=== PATIENT | female | born 1995 | race Caucasian/White ===

== ENCOUNTER 2019-10-14 07:25 | Emergency (ER) | payer OTHER ==
[~2019-10-14] VITALS: Ht 167.6 cm; Wt 104.3 kg
[2019-10-14] MEDS ORDERED: ZPAK PO (07:39)
[2019-10-14] MEDS ORDERED: MUCINEX D ER 11 EACH PO (07:39)
[2019-10-14 08:02] VITALS: BP 138/80
== END 2019-10-14 07:58 | disposition home or self-care (01) ==
LOC: ER 07:25
DX: H65.191 Other acute nonsuppurative otitis media, right ear (principal)

== ENCOUNTER 2019-11-08 19:18 | Emergency (ER) | payer OTHER ==
[~2019-11-08] VITALS: Ht 170.2 cm; Wt 104.3 kg
[~2019-11-08 19:18] MED LIST: MUCINEX D ER 11 EACH PO; ZPAK PO
[2019-11-08] MEDS ORDERED: IBUPROFEN 800800 M1 PO (19:26)
[2019-11-08 21:56] VITALS: BP 124/63
== END 2019-11-08 21:58 | disposition home or self-care (01) ==
LOC: ER 19:18
DX: J10.1 Influenza due to other identified influenza virus with other respiratory manifestations (principal)

== ENCOUNTER 2020-04-17 20:17 | Emergency (ER) | payer OTHER ==
[~2020-04-17] VITALS: Ht 167.6 cm; Wt 104.3 kg
[~2020-04-17 20:17] MED LIST changes: +IBUPROFEN 800800 M1 PO
[2020-04-17] MEDS ORDERED: XANAX 0.5 MG0.5 MG PO (20:28)
[2020-04-17 21:10] LABS: URINE BILIRUBIN NEGATIVE (Negative); URINE BLOOD 1+ (Negative); URINE CLARITY SL CLOUDY; URINE COLOR YELLOW; URINE GLUCOSE-RANDOM* NEGATIVE (Negative); URINE KETONES NEGATIVE (Negative); URINE LEUKOCYTES-REFLEX TRACE (Negative); URINE NITRITE-REFLEX NEGATIVE (Negative); URINE PROTEIN (DIPSTICK) NEGATIVE (Negative); URINE SPECIFIC GRAVITY >= 1.030 (1.005-1.035); URINE UROBILINOGEN 0.2 E.U./dl (0.2-1.0)
[2020-04-17 21:21] LABS: ABSOLUTE NEUTROPHILS 6.8 thou/uL (1.4-8.2); BASOPHILS 0.7 % (0.0-2.0); EOSINOPHILS 4.3 % (0.0-3.0); HEMATOCRIT 37.8 % (37.0-47.0); HEMOGLOBIN 12.9 gm/dL (12.0-15.0); LYMPHOCYTES 30.2 % (24.0-44.0); MCH 30.3 pg (26.0-34.0); MCHC 34.2 g/dL (28.0-37.0); MCV 88.8 fL (80.0-100.0); MONOCYTES 5.8 % (1.0-8.0); PLATELET COUNT 234 thou/uL (150-400); RBC 4.26 mil/uL (4.20-5.00); RDW 13.9 % (10.5-14.5); WBC 11.6 thou/uL (4.0-11.0)
[2020-04-17 21:24] LABS: AMORPHOUS URATES Many /LPF (None Seen); BACTERIA-REFLEX 1-9 Few /HPF (None Seen); CASTS None Seen /LPF (None Seen); CRYSTALS None Seen /LPF (None Seen); SQUAMOUS 0-3 Few /LPF (0-3); URINE RBC 0-2 Rare /HPF (0-2); URINE WBC-REFLEX 0-5 Rare /HPF (0-5)
[2020-04-17 21:28] LABS: CALCIUM 8.5 mg/dL (8.5-10.1); POTASSIUM 3.3 mmol/L (3.5-5.1)
[2020-04-17 21:34] LABS: ALBUMIN 3.4 g/dL (3.4-5.0); TOTAL BILIRUBIN 0.5 mg/dL (0.2-1.0); TOTAL PROTEIN 7.4 g/dL (6.4-8.2)
[2020-04-17] MEDS ORDERED: ZOFRAN ODT4 MG PO (22:51)
[2020-04-17 23:00] VITALS: BP 143/81
== END 2020-04-17 23:29 | disposition home or self-care (01) ==
LOC: ER 20:17
PROVIDERS: Emergency Medicine
DX: R11.2 Nausea with vomiting, unspecified (principal); Z20.828 Contact with and (suspected) exposure to other viral communicable diseases; R19.7 Diarrhea, unspecified; R10.84 Generalized abdominal pain; R42 Dizziness and giddiness; F41.9 Anxiety disorder, unspecified; Z96.22 Myringotomy tube(s) status; Z79.899 Other long term (current) drug therapy

== ENCOUNTER → 2020-04-21 | Outpatient (CLI) | payer OTHER ==
[~2020-04-21] MED LIST changes: +XANAX 0.5 MG0.5 MG PO; +ZOFRAN ODT4 MG PO
== END ==
LOC: LAB 04-20 10:44
PROVIDERS: ATTEND Family Medicine
DX: J02.9 Acute pharyngitis, unspecified (principal); K52.9 Noninfective gastroenteritis and colitis, unspecified

== ENCOUNTER → 2020-04-29 | Outpatient (CLI) | payer OTHER | LOC: LAB 12:22 | PROVIDERS: ATTEND Family Medicine | DX: R19.7 Diarrhea, unspecified (principal); Z20.828 Contact with and (suspected) exposure to other viral communicable diseases ==